=== PATIENT | male | born 1950 | race Asian ===

== ENCOUNTER 2023-04-18 18:55 | Emergency (ER) | payer OTHER ==
[~2023-04-18] VITALS: Ht 167.6 cm; Wt 95.3 kg
[2023-04-18] MEDS ORDERED: BIKTARVY 50-2001 TAB PO (19:17)
[2023-04-18] MEDS ORDERED: LISINOP/HCTZ1 TA2 PO (19:17)
[2023-04-18] MEDS ORDERED: AMLODIPINE BESYLATE PO (19:18)
[2023-04-18] MEDS ORDERED: PANTOPRAZOLE SO40 M1 PO (19:19)
[2023-04-18] MEDS ORDERED: TAMSULOSIN HYD0.4 MG PO (19:20)
[2023-04-18] MEDS ORDERED: MECLIZINE HCL 25 MG TAB PO ONE ×2 (19:58→20:00)
[2023-04-18 20:35] VITALS: BP 112/71; TEMP 98.3
== END 2023-04-18 20:35 | disposition home or self-care (01) ==
LOC: ED 18:55
DX: R42 Dizziness and giddiness (principal); H93.13 Tinnitus, bilateral
CPT/HCPCS: 99282